=== PATIENT | female | born 1930 | race Two or more races ===

== ENCOUNTER 2019-03-15 10:02 | Inpatient (IN) | payer OTHER ==
[~2019-03-15] VITALS: Ht 152.4 cm; Wt 68.0 kg
[~2019-03-15 10:02] MED LIST: AVAPRO300 MG PO; CIPRO500 MG PO; COZAAR25 MG PO; NORVASC5 MG PO; PLAVIX75 MG PO; SINTHROID
[2019-03-17] MEDS ORDERED: LEVO-T175 MCG (08:16)
[2019-03-17] MEDS ORDERED: PANTOPRAZOLE SO20 MG PO (08:17)
[2019-03-17] MEDS ORDERED: LOSARTAN POTAS100 MG PO (08:17)
== END 2019-04-11 16:45 | disposition home or self-care (01) | DRG 641 ==
LOC: ER 10:02 → MEDJ 03-16 08:41
PROVIDERS: ADMIT Internal Medicine
PROC: 4A12X4Z Monitoring of Cardiac Electrical Activity, External Approach (ICD-10-PCS; principal; 2019-03-16)
PROC: B246ZZZ Ultrasonography of Right and Left Heart (ICD-10-PCS; 2019-03-16)
PROC: 3E0F7GC Introduction of Other Therapeutic Substance into Respiratory Tract, Via Natural or Artificial Opening (ICD-10-PCS; 2019-03-24)
PROC: 0DH67UZ Insertion of Feeding Device into Stomach, Via Natural or Artificial Opening (ICD-10-PCS; 2019-03-26)
PROC: 3E0G76Z Introduction of Nutritional Substance into Upper GI, Via Natural or Artificial Opening (ICD-10-PCS; 2019-03-26)
PROC: 02HV33Z Insertion of Infusion Device into Superior Vena Cava, Percutaneous Approach (ICD-10-PCS; 2019-03-27)
PROC: 4A033R1 Measurement of Arterial Saturation, Peripheral, Percutaneous Approach (ICD-10-PCS; 2019-03-27)
PROC: BW21ZZZ Computerized Tomography (CT Scan) of Abdomen and Pelvis (ICD-10-PCS; 2019-04-08)
PROC: 0BH17EZ Insertion of Endotracheal Airway into Trachea, Via Natural or Artificial Opening (ICD-10-PCS; 2019-04-08)
PROC: 5A1945Z Respiratory Ventilation, 24-96 Consecutive Hours (ICD-10-PCS; 2019-04-08)
DX: E46 Unspecified protein-calorie malnutrition (principal); I67.89 Other cerebrovascular disease; C78.6 Secondary malignant neoplasm of retroperitoneum and peritoneum; C78.7 Secondary malignant neoplasm of liver and intrahepatic bile duct; R18.0 Malignant ascites; J91.8 Pleural effusion in other conditions classified elsewhere; K57.30 Diverticulosis of large intestine without perforation or abscess without bleeding; I48.0 Paroxysmal atrial fibrillation; E86.0 Dehydration; C50.819 Malignant neoplasm of overlapping sites of unspecified female breast; E03.8 Other specified hypothyroidism; R13.19 Other dysphagia; J45.909 Unspecified asthma, uncomplicated; R09.02 Hypoxemia